=== PATIENT | male | born 1990 | race Caucasian/White ===

== ENCOUNTER 2017-06-13 15:31 | Emergency (ER) | payer SELFPAY ==
[2017-06-13] MEDS ORDERED: Sodium Bicarb 50 MEQ/50 ML Abboject 8.4% SYRINGE ONE (17:00)
[2017-06-13] MEDS ORDERED: EPINEPHrine 1 MG/10 ML Abboject SYRINGE ONE (17:00)
== END 2017-06-13 15:36 ==
LOC: ERS 15:31 → EDBD 15:31 → ERS 15:36
DX: T71.162A Asphyxiation due to hanging, intentional self-harm, initial encounter (principal); I46.8 Cardiac arrest due to other underlying condition
CPT/HCPCS: 92950; 96374; 96375; G0390; J0171